=== PATIENT | female | born 1980 | race Caucasian/White ===

== ENCOUNTER → 2017-09-08 | Outpatient (CLI) | payer BC ==
[~2017-09-08] MED LIST: LEXISCAN IV ONE
== END ==
LOC: RAD 07:53
PROVIDERS: ATTEND Physician Assistant
DX: R07.89 Other chest pain (principal); R06.02 Shortness of breath; R53.83 Other fatigue
CPT/HCPCS: 78452; 93017; A4222; A9502; J2785